=== PATIENT | male | born 1980 | race Caucasian/White ===

== ENCOUNTER → 2017-09-05 | Outpatient (CLI) | payer BC | END | disposition home or self-care (01) | LOC: RAD 16:41 | DX: S22.31XA Fracture of one rib, right side, initial encounter for closed fracture (principal); X58.XXXA Exposure to other specified factors, initial encounter | CPT/HCPCS: 71046; 71100 ==

== ENCOUNTER → 2017-12-10 | Outpatient (CLI) | payer BC | END | disposition home or self-care (01) | LOC: HKI 10:35 | DX: S83.411D Sprain of medial collateral ligament of right knee, subsequent encounter (principal); M25.561 Pain in right knee | CPT/HCPCS: 73562; 73562-50 ==